=== PATIENT | female | born 1970 | race Caucasian/White ===

== ENCOUNTER 2016-10-16 21:23 | Emergency (ER) | payer OTHER ==
[2016-10-16 21:45] VITALS: BP 155/100
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
[2016-10-16] MEDS ORDERED: MOTRIN PO ONE (22:24)
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
== END 2016-10-16 22:55 | disposition home or self-care (01) ==
LOC: ED 21:23
DX: S09.90XA Unspecified injury of head, initial encounter (principal); M54.2 Cervicalgia; V89.2XXA Person injured in unspecified motor-vehicle accident, traffic, initial encounter; Y93.89 Activity, other specified; Y92.89 Other specified places as the place of occurrence of the external cause; Y99.8 Other external cause status
CPT/HCPCS: 70450; 72040; 99284